=== PATIENT | male | born 1980 | race Two or more races ===

== ENCOUNTER 2017-02-08 17:05 | Emergency (ER) | payer SELFPAY ==
[~2017-02-08] VITALS: Ht 160 cm; Wt 65.8 kg
--- NOTE | 2017-02-08 17:47 | Emergency Room Report ---
History of Present Illness General Chief Complaint: General Complaint Source: Patient Present Illness HPI 36 YO Male presents to the ED C/O Left ear pain 7/10 in severity x 5 days with progressive left sided facial numbness x 2 days with numbness of his tongue as well. denies rashes, fevers, chills, or recent illness. pt. denies pmhx, and does not take medications. denies trauma, fall , or ear d/c. pt. denies dental pain or recent dental work. denies extremity weakness. denies nausea or vomiting. Denies CP, Palpitations, LOC, AMS, dizziness, Changes in Vision, Sensation, paresthesias, or a sudden severe headache. Allergies: Coded Allergies: No Known Allergies (Unverified , 02/08/17) Patient History Past Medical History: see triage record Past Surgical History: none Pertinent Family History: none Immunizations: UTD Reviewed Nursing Documentation: PMH: Agreed, PSxH: Agreed Nursing Documentation-PMH Past Medical History: No Stated History Review of Systems All Other Systems: negative except mentioned in HPI Physical Exam Vital Signs Date Time Temp Pulse Resp B/P (MAP) Pulse Ox O2 Delivery O2 Flow Rate FiO2 02/08/17 17:15 98.1 64 18 143/91 99 Room Air Sp02 EP Interpretation: reviewed, normal General Appearance: no apparent distress, alert, GCS 15, non-toxic Head: normocephalic, atraumatic, other - abscence of forehead wrinkles on the left side, with prominence on the right Eyes: left eye other - weakness in the left orbicularis muscle. , bilateral eye normal inspection, bilateral eye PERRL ENT: hearing grossly normal, normal pharynx, no angioedema, normal voice, TMs + canals normal, uvula midline Neck: full range of motion, no bony tend, supple/symm/no masses Respiratory: chest non-tender, lungs clear, normal breath sounds, speaking full sentences Cardiovascular #1: regular rate, rhythm Rectal: deferred Musculoskeletal: back normal, gait/station normal, normal range of motion Neurologic: alert, oriented x3, responsive, motor strength/tone normal, sensory intact, normal gait, speech normal, no pronator, sensory deficit - pt reports paresthesia in the left side of the face. , other - left sided facial muscle weakness noted including the forehead. Skin: normal color, no rash, warm/dry, well hydrated Lymphatic: no adenopathy Medical Decision Making PA Attestation Dr. Collier is my supervising Physician whom patient management has been discussed with. Diagnostic Impression: Primary Impression: Arana palsy ER Course 36 YO Male presents to the ED C/O Left ear pain 7/10 in severity x 5 days with progressive left sided facial numbness x 2 days with numbness of his tongue as well. denies rashes, fevers, chills, or recent illness. pt. denies pmhx, and does not take medications. denies trauma, fall , or ear d/c. pt. denies dental pain or recent dental work. denies extremity weakness. denies nausea or vomiting. Denies CP, Palpitations, LOC, AMS, dizziness, Changes in Vision, Sensation, paresthesias, or a sudden severe headache. Ddx considered but are not limited to migraine, SAH, CVA, Gaylord Palsy Psedudo motor Cerebri, Mass lesion, Cluster SMYTH, Tension SMYTH, Vital signs: are WNL, pt. is afebrile H&PE are most consistent with bells palsy, involvement of the forehead on PE. pt. was also examined by supervising physician Dr. Collier, whom agrees. ORDERS: - none required at this time, dx is clinical. ED INTERVENTIONS: - d/w pt. that he will be d/c with conservative treatment and anti-virals in addition to prednisone. d/w pt. follow up with pmd in 3-5 days. gave ED return precautions for worsening or new symptoms. DISCHARGE: At this time pt. is stable for d/c to home. Will provide printed patient care instructions, and any necessary prescriptions. Care plan and follow up instructions have been discussed with the patient prior to discharge. Pt to be D/C with Prednisone and Valacyclovir. Last Vital Signs Date Time Temp Pulse Resp B/P (MAP) Pulse Ox O2 Delivery O2 Flow Rate FiO2 02/08/17 17:15 98.1 64 18 143/91 99 Room Air Disposition: HOME, SELF-CARE Condition: Stable Scripts Glycerin/Propylene Glycol (LUBRICANT EYE DROPS) 15 Ml Drops 2 DROP OP BID, #15 ML Prov: Martine Lua 02/08/17 Valacyclovir Hcl* (VALTREX*) 500 Mg Tablet 1000 MG ORAL TWICE A DAY for 5 Days, #10 TAB Prov: Martine Lua. 02/08/17 Prednisone* (PREDNISONE*) 20 Mg Tablet 60 MG ORAL DAILY for 5 Days, #15 TAB Prov: Martine Lua. 02/08/17 Patient Instructions: Arana Palsy Additional Instructions: Take medications as directed. Follow up with a Primary Care Provider in 3-5 days, even if your symptoms have resolved. --Please review list of primary care clinics, if you do not already have a primary care provider Return sooner to ED if new symptoms occur, or current symptoms become worse. - Please note that this Emergency Department Report was dictated using [employer] bookkeeper technology software, occasionally this can lead to erroneous entry secondary to interpretation by the dictation equipment. Martine Lua Feb 08, 2017 17:47
[2017-02-08] MEDS ORDERED: LUBRICANT EYE D15 M1 OP (18:24)
[2017-02-08] MEDS ORDERED: PREDNISONE20 MG ORAL (18:24)
[2017-02-08] MEDS ORDERED: VALACYCLOVIR500 MG ORAL (18:24)
[2017-02-08 18:38] VITALS: BP 150/91
== END 2017-02-08 18:54 | disposition home or self-care (01) ==
LOC: EMR 17:52
DX: G51.0 Bell's palsy (principal)
CPT/HCPCS: 99283

== ENCOUNTER 2019-08-21 18:57 | Emergency (ER) | payer MEDICAID ==
[~2019-08-21] VITALS: Ht 160 cm; Wt 68.0 kg
[~2019-08-21 18:57] MED LIST: LUBRICANT EYE D15 M1 OP; NKM; PREDNISONE20 MG ORAL; VALACYCLOVIR500 MG ORAL; VISTARIL25 M1 PO
[2019-08-21 19:05] VITALS: BP 154/99
[2019-08-21 19:23] LABS: BASOPHILS % (AUTO) 0.8 % (0.0-2.0); EOSINOPHILS % (AUTO) 0.9 % (0.0-3.0); HEMATOCRIT 49.7 % (42.0-52.0); HEMOGLOBIN 16.2 G/DL (14.2-18.0); LYMPHOCYTES % (AUTO) 34.9 % (20.0-45.0); MEAN CORPUSCULAR VOLUME 89 FL (80-99); MONOCYTES % (AUTO) 4.3 % (1.0-10.0); NEUTROPHILS % (AUTO) 59.1 % (45.0-75.0); PLATELET COUNT 196 K/UL (150-450); RED BLOOD COUNT 5.58 M/UL (4.70-6.10); RED CELL DISTRIBUTION WIDTH 13.7 % (11.6-14.8)
[2019-08-21 19:25] LABS: ANION GAP 12 mmol/L (5-15); BLOOD UREA NITROGEN 18 mg/dL (7-18); CALCIUM 8.8 MG/DL (8.5-10.1); CARBON DIOXIDE 25 MMOL/L (21-32); CHLORIDE 100 MMOL/L (98-107); CREATININE 1.1 MG/DL (0.55-1.30); POTASSIUM 3.3 MMOL/L (3.5-5.1); SODIUM 137 MMOL/L (136-145)
--- NOTE | 2019-08-21 20:17 | Emergency Room Report ---
History of Present Illness General Chief Complaint: Generalized Weakness Source: Patient, EMS Present Illness HPI Patient presents with reports that he felt a general weakness He felt a sensation earlier while he was on a computer reports that recently he has felt significant Sensitivity to heat and cool Denies any chest pain with this denies any vomiting or diarrhea denies any fevers or chills Describes it as a heaviness that he feels Diffusely Denies any visual changes with this denies any loss of consciousness denies any palpitations he does Have a sensation of shortness of breath at times however that resolves Denies any recent travel And reports that the previous episode in February was similar to this he had another episode in April which resolved by itself and today presents for similar weakness Allergies: Coded Allergies: No Known Allergies (Unverified , 02/08/17) COVID-19 Screening Contact w/high risk pt: No Recent Travel to affected area: No Experienced COVID-19 symptoms?: No COVID-19 Testing performed CNA GNA: No Patient History Past Medical History: see triage record Reviewed Nursing Documentation: PMH: Agreed; PSxH: Agreed Nursing Documentation-PMH Past Medical History: No History, Except For History Of Psychiatric Problem: Yes - anxiety Review of Systems All Other Systems: negative except mentioned in HPI Physical Exam Vital Signs Date Time Temp Pulse Resp B/P (MAP) Pulse Ox O2 Delivery O2 Flow Rate FiO2 08/21/19 18:51 97.9 89 22 161/107 (125) 99 Room Air Sp02 EP Interpretation: reviewed, normal General Appearance: well appearing, no apparent distress Head: normocephalic, atraumatic Eyes: bilateral eye PERRL, bilateral eye EOMI ENT: hearing grossly normal, normal pharynx, TMs + canals normal, uvula midline Neck: full range of motion, supple, no meningismus, no bony tend Respiratory: lungs clear, normal breath sounds, no rhonchi, no respiratory distress, no retraction, no accessory muscle use Cardiovascular #1: normal peripheral pulses, regular rate, rhythm, no edema, no gallop, no JVD, no murmur Gastrointestinal: normal bowel sounds, non tender, soft, no mass, no organomegaly, non-distended, no guarding, no hernia, no pulsatile mass, no rebound Genitourinary: no CVA tenderness Musculoskeletal: normal inspection Neurologic: motor strength/tone normal, garde manager III-XII nml as tested, oriented x3 , sensory intact, responsive Psychiatric: mood/affect normal Skin: no rash Lymphatic: normal inspection, no adenopathy Medical Decision Making Diagnostic Impression: Primary Impression: weakness ER Course Multiple differentials included but not limited to electrolyte pathology anemia, , cardiac, cardiopulmonary process entertained Patient's potassium level is minimally low There is some question regarding episodic hypokalemic syndrome However the potassium levels are usually lower than this patient remains hemodynamically stable He did not have any follow-up after his initial visit here and it was discussed the importance of this Patient also asking to eat and feels that he does feel better after this usually and is stable for close outpatient follow-up Labs Test 08/21/19 19:00 08/21/19 19:20 White Blood Count 7.0 K/UL (4.8-10.8) Red Blood Count 5.58 M/UL (4.70-6.10) Hemoglobin 16.2 G/DL (14.2-18.0) Hematocrit 49.7 % (42.0-52.0) Mean Corpuscular Volume 89 FL (80-99) Mean Corpuscular Hemoglobin 29.1 PG (27.0-31.0) Mean Corpuscular Hemoglobin Concent 32.6 G/DL (32.0-36.0) Red Cell Distribution Width 13.7 % (11.6-14.8) Platelet Count 196 K/UL (150-450) Mean Platelet Volume 8.1 FL (6.5-10.1) Neutrophils (%) (Auto) 59.1 % (45.0-75.0) Lymphocytes (%) (Auto) 34.9 % (20.0-45.0) Monocytes (%) (Auto) 4.3 % (1.0-10.0) Eosinophils (%) (Auto) 0.9 % (0.0-3.0) Basophils (%) (Auto) 0.8 % (0.0-2.0) Sodium Level 137 MMOL/L (136-145) Potassium Level 3.3 MMOL/L (3.5-5.1) Chloride Level 100 MMOL/L (98-107) Carbon Dioxide Level 25 MMOL/L (21-32) Anion Gap 12 mmol/L (5-15) Blood Urea Nitrogen 18 mg/dL (7-18) Creatinine 1.1 MG/DL (0.55-1.30) Estimat Glomerular Filtration Rate > 60 mL/min (>60) Glucose Level 119 MG/DL (74-106) Calcium Level 8.8 MG/DL (8.5-10.1) Magnesium Level 2.0 MG/DL (1.8-2.4) Urine Opiates Screen Negative (NEGATIVE) Urine Barbiturates Screen Negative (NEGATIVE) Phencyclidine (PCP) Screen Negative (NEGATIVE) Urine Amphetamines Screen Negative (NEGATIVE) Urine Benzodiazepines Screen Negative (NEGATIVE) Urine Cocaine Screen Negative (NEGATIVE) Urine Marijuana (THC) Screen Negative (NEGATIVE) EKG Diagnostic Results Rate: normal Rhythm: NSR ST Segments: no acute changes Rhythm Strip Diag. Results EP Interpretation: yes Rate: 77 Rhythm: NSR, no PVC's, no ectopy CT/MRI/US Diagnostic Results CT/MRI/US Diagnostic Results : Impression CT head from February reviewed which was negative Last Vital Signs Date Time Temp Pulse Resp B/P (MAP) Pulse Ox O2 Delivery O2 Flow Rate FiO2 08/21/19 19:05 97.9 81 22 154/99 99 Room Air Status: improved Disposition: HOME, SELF-CARE Condition: Improved Referrals: [facility] Sherron Shukla [facility] Patient Instructions: Weakness Additional Instructions: Patient is provided with the discharge instructions notified to follow up with primary doctor in the next 2-3 days otherwise return to the er with any worsening symptoms. Please note that this report is being documented using DRAGON technology. This can lead to erroneous entry secondary to incorrect interpretation by the dictating instrument. Paola Walton DO Aug 21, 2019 20:17
[2019-08-21 20:18] VITALS: BP 154/99
== END 2019-08-21 20:18 | disposition home or self-care (01) ==
LOC: EDBD 18:57 → EMR 20:10
DX: R53.1 Weakness (principal); F41.9 Anxiety disorder, unspecified
CPT/HCPCS: 36415; 80048; 80307; 83735; 85025; 93005; 96360; J7030; Z7502; 99284; J8499